=== PATIENT | male | born 1985 | race Caucasian/White ===

== ENCOUNTER 2023-10-21 06:07 | Day surgery (SDC) | payer OTHER, SELFPAY ==
[2023-10-21] VITALS (11 sets, daily range): BP systolic 115–128; BP diastolic 71–81; BMI 28.2
[2023-10-21 09:12] LABS: Glucose - Point of Care 150 mg/dl (70-99)
[2023-10-21] MEDS: VANCOCIN 200 IV (09:14)
[2023-10-21] MEDS: NORMOSOL-R 1000 IV (09:15)
[2023-10-21 11:26] LABS: Glucose - Point of Care 143 mg/dl (70-99)
[2023-10-21] MEDS: SUBLIMAZE 25 MCG IV (12:01)
== END 2023-10-21 13:05 | disposition home or self-care (01) ==
LOC: SDS 06:07
PROVIDERS: ATTENDING PHYSICIAN Specialist
DX: N43.40 Spermatocele of epididymis, unspecified (principal)
CPT/HCPCS: 55520; 88304; 82962; 87070; 87147